=== PATIENT | male | born 1970 | race Caucasian/White ===

== ENCOUNTER 2018-02-11 04:46 | Emergency (ER) | payer OTHER ==
[~2018-02-11] VITALS: Ht 175.3 cm; Wt 135.0 kg
[2018-02-11 04:53] VITALS: BP 155/83; PULSE 74; RESP 18; O2SAT 98
[2018-02-11] MEDS ORDERED: ATOR40TA16 PO (05:14)
[2018-02-11] MEDS ORDERED: VITATAB25 PO (05:14)
[2018-02-11] MEDS ORDERED: MOME17I EACH NARE (05:17)
--- NOTE | 2018-02-11 05:17 | PD ---
HPI Chief Complaint: Nosebleed Time Seen by Provider: 05:07 Travel History International Travel<30 days: Yes ([place] and [place]) Contact w/Intl Traveler<30days: Yes Name of Country Traveled to: [place] and [place] Traveled to known affect area: No History of Present Illness HPI 47-year-old male with history of hypercholesterolemia, presents emergency department for evaluation of epistaxis. He has had 2 episodes of this since yesterday. He states that he woke up yesterday with blood on his pillow. This happened again today. Denies any trauma. No recent illnesses, fever, chills. Patient was treated for sinusitis 3 weeks ago by his primary care provider. Denies any significant pain. He does have a mild frontal headache. No other symptoms to report. PFSH Past Medical History High Cholesterol: Yes Diminished Hearing: No Tetanus Vaccination: < 5 Years Influenza Vaccination: No Past Surgical History Surgical History: No Previous Surgery Social History Alcohol Use: Yes (occionally) Tobacco Use: No Substance Use: No Allergies-Medications (Allergen,Severity, Reaction): Coded Allergies: Penicillins (Verified Allergy, Severe, Anaphylaxis, 02/11/18) Reported Meds & Prescriptions Reported Meds & Active Scripts Active Nasonex Nasal [place] (Mometasone Furoate) 50 Mcg/Act Naspr 2 [place] EACH NARE DAILY Reported Vitamin D-[address] (Cholecalciferol) 1,000 Unit Tab 1,000 Units PO DAILY Atorvastatin (Atorvastatin Calcium) 40 Mg Tab 40 Mg PO HS Review of Systems Except as stated in HPI: all other systems reviewed are Neg Physical Exam Narrative GENERAL: Well-nourished, well-developed male patient in no acute distress SKIN: Focused skin assessment warm/dry. HEAD: Normocephalic. No sinus tenderness to palpation. EYES: No scleral icterus. No injection or drainage. ENT: Mucosa pink and moist. No erythema or exudates. No uvular edema. No uvular , palatal, or tonsillar deviation. Airway patent. Nasal turbinates appear significantly inflamed without any nasal blood, purulent drainage, or hematoma. NECK: Supple, trachea midline. No JVD or lymphadenopathy. CARDIOVASCULAR: Regular rate and rhythm without murmurs, gallops, or rubs. RESPIRATORY: Breath sounds equal bilaterally. No accessory muscle use. GASTROINTESTINAL: Abdomen soft, non-tender, nondistended. MUSCULOSKELETAL: No cyanosis, or edema. BACK: Nontender without obvious deformity. No CVA tenderness. Data Data Last Documented VS Vital Signs Date Time Temp Pulse Resp B/P (MAP) Pulse Ox O2 Delivery O2 Flow Rate FiO2 02/11/18 04:53 74 18 155/83 (107) 98 Orders Orders Ed Discharge Order (02/11/18 05:12) MDM Medical Decision Making Medical Screen Exam Complete: Yes Emergency Medical Condition: Yes Medical Record Reviewed: Yes Differential Diagnosis Epistaxis versus rhinitis versus sinusitis versus allergies versus hypo- coagulopathy Narrative Course 47-year-old male presents emergency department for evaluation of epistaxis. Patient is not currently bleeding. He states he has had 2 episodes in the last 24 hours. No trauma. Patient does have significantly inflamed turbinates. His epistaxis is likely secondary to allergic rhinitis. Patient will be started on Nasonex, he is encouraged to use [id number] normal saline spray. 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 He agrees to return immediately with any acute worsening symptoms. Diagnosis Primary Impression: Epistaxis Additional Impression: Rhinitis Qualified Codes: J31.0 - Chronic rhinitis Referrals: Ear / Nose / Throat Specialist Primary Care Physician Patient Instructions: Epistaxis (DC), General Instructions Additional Instructions: Humidified air [id number] nasal saline spray morning and night Follow-up with a primary care provider [id number] antihistamine such as Zyrtec as directed on the package may help alleviate symptoms Seek ear nose and throat evaluation if symptoms persist Return immediately with acute worsening symptoms Med/Other Pt SpecificInfo: Prescription(s) given Scripts Mometasone Nasal [place] (Nasonex Nasal [place]) 50 Mcg/Act Naspr 2 SPRAY EACH NARE DAILY for Allergy Management, #1 BOTTLE 0 Refills Prov: Jewels Noe 02/11/18 Disposition: 01 DISCHARGE HOME Condition: Stable Jewels Noe Feb 11, 2018 05:17
== END 2018-02-11 05:34 | disposition home or self-care (01) ==
LOC: NEPD 04:46
DX: R04.0 Epistaxis (principal); J31.0 Chronic rhinitis; E78.00 Pure hypercholesterolemia, unspecified; Z88.0 Allergy status to penicillin; Z79.899 Other long term (current) drug therapy
CPT/HCPCS: 99283

== ENCOUNTER 2018-04-16 07:03 | Observation (INO) | payer OTHER ==
[~2018-04-16] VITALS: Ht 175.3 cm; Wt 137.7 kg
[~2018-04-16 07:03] MED LIST: ATOR40TA16 PO; FLUT50SP EACH NARE; MOME17I EACH NARE; VITATAB25 PO; fentaNYL CITRATE 250 MCG/5 ML AMP ONE
[2018-04-16] MEDS ORDERED: LIDOCAINE 1%/EPINEPHrine 1:100,000 SOLN 20 ML VIAL ONE (07:04)
[2018-04-16] MEDS ORDERED: OXYMETAZOLINE HCL 0.05% 15 ML NASAL SPRAY ONE (07:05)
[2018-04-16] MEDS ORDERED: BACITRACIN TOP OINT 15 GM TUBE ONE (07:06)
[2018-04-16] MEDS ORDERED: LIDOCAINE 1%/EPINEPHrine 1:100,000 SOLN 30 ML VIAL ONE (07:06)
[2018-04-16] MEDS ORDERED: CHLORHEXIDINE GLUCONATE 2 % 1 PACK (2 CLOTHS) TOPICAL PRN (07:45)
[2018-04-16] MEDS ORDERED: LACTATED RINGER'S 1000 ML IV PRN (07:45)
[2018-04-16] MEDS ORDERED: POVIDONE IODINE 5% (ANTISEPSIS KIT) 4 APPLICATIONS EACH NARE PRN (07:45)
[2018-04-16] MEDS ORDERED: METOPROLOL TARTRATE 25 MG TAB PO PRN (07:45)
[2018-04-16] MEDS ORDERED: SODIUM CHLORID 0.9% 500 ML IV PRN (07:45)
[2018-04-16] MEDS ORDERED: CLINDAMYCIN 600 MG/NS PREMIX 50 ML IV ONE ×2 (07:57→08:15)
[2018-04-16] MEDS ORDERED: MICROFIBRILLAR COLLAGEN HEMOSTAT 1 GM PKT TOPICAL ONE (11:30)
[2018-04-16] MEDS ORDERED: OXYMETAZOLINE HCL 0.05% 15 ML NASAL SPRAY NASAL ONE (11:31)
[2018-04-16 12:01] VITALS: PULSE 90
[2018-04-16] MEDS ORDERED: *Lactated Ringer's INJ 1,000 ML ONE (12:08)
[2018-04-16] MEDS ORDERED: *MEPERIDINE 25 MG INJ VIAL PERIprocedural Use ONLY ONE (12:23)
[2018-04-16] MEDS ORDERED: ONDANSETRON HCL 4 MG/2 ML VIAL IV PRN (13:15)
[2018-04-16] MEDS ORDERED: ACETAMINOPHEN/HYDROcodone 325 MG/7.5 MG TAB PO PRN (13:15)
[2018-04-16 13:35] VITALS: PULSE 81
[2018-04-16 15:20] VITALS: O2SAT 99
[2018-04-16] MEDS: ACETAMINOPHEN 325MG/HYDROcodone 7.5MG/15ML UDC PO SCH ×3 (15:44→23:03)
[2018-04-16] MEDS: LACTATED RINGER'S 1000 ML INJ 1,000 ML IV SCH ×2 (15:45→23:15)
[2018-04-16] MEDS: CLINDAMYCIN 900 MG/NS PREMIX 50 ML IV SCH (17:05)
[2018-04-16 17:17] VITALS: BP 132/74; PULSE 104; RESP 18; TEMP 97; O2SAT 95
[2018-04-16 20:00] VITALS: BP 151/84; PULSE 106; RESP 20; TEMP 97.1; O2SAT 99
[2018-04-16 20:50] VITALS: O2SAT 97
[2018-04-16] MEDS ORDERED: ATORVASTATIN 40 MG TAB PO SCH (21:00)
[2018-04-17] VITALS: BP 134/88; PULSE 94; RESP 20; TEMP 96.4; O2SAT 99
[2018-04-17] MEDS: CLINDAMYCIN 900 MG/NS PREMIX 50 ML IV SCH (01:25)
[2018-04-17] MEDS: ACETAMINOPHEN 325MG/HYDROcodone 7.5MG/15ML UDC PO SCH ×2 (03:10→06:40)
[2018-04-17] MEDS: LACTATED RINGER'S 1000 ML INJ 1,000 ML IV SCH (04:19)
[2018-04-17 07:50] VITALS: BP 130/70; PULSE 77; RESP 20; TEMP 96.3; O2SAT 95
[2018-04-17 08:34] VITALS: O2SAT 92
--- NOTE | 2018-04-21 12:42 | MP ---
cc: José Luis Bob MD DATE OF OPERATION: DATE OF PROCEDURE: 04/16/2018. SURGEON: José Luis Bob MD PREOPERATIVE DIAGNOSES: 1. Adenotonsillar hypertrophy. 2. Chronic tonsillitis. 3. Obstructive sleep apnea. 4. Nasal airway obstruction. 5. Chronic pansinusitis. POSTOPERATIVE DIAGNOSES: 1. Adenotonsillar hypertrophy. 2. Chronic tonsillitis. 3. Obstructive sleep apnea. 4. Nasal airway obstruction. 5. Chronic pansinusitis. OPERATION PERFORMED: 1. Open repair, nasal septal fracture. 2. Bilateral submucosal resection of inferior turbinates. 3. Bilateral endoscopic maxillary antrostomies with removal of maxillary sinus tissue. 4. Bilateral endoscopic exploration of frontal sinus ducts with balloon dilation. 5. Bilateral endoscopic sphenoid ostium antrostomy. 6. Adenotonsillectomy. INDICATIONS: Documented in the history and physical. DETAILS OF PROCEDURE: The patient was taken to OR #2 and placed in the supine position. Following induction of general anesthesia and intubation, the nose is packed bilaterally with cotton pledgets saturated in 0.05% oxymetazoline. Septal mucosa and inferior turbinates were injected with a total of 10 mL of 1% Xylocaine with epinephrine 1:100,000. He was then prepped and draped for surgery. Nasal packing was removed and a hemitransfixion incision was made in the left nasal vestibule. Through this incision, the septal mucosa was elevated from the underlying quadrangular cartilage as far as the junction of the bony and cartilaginous septum. This exposed the quadrangular cartilage and on it showed evidence of old fracture with numerous comminuted fragments extending into the airways bilaterally. A cumulative area of 2 x 3 cm was removed, preserving 1.5 cm dorsal and caudal cartilaginous struts. This was done with a [place] elevator and Enrique-Peña forceps. When this was completed, the mucosa was elevated from the bony septum and the maxillary crest and these were removed using the [place]-Peña forceps. Incision was then closed with a running suture of 4-0 chromic and the mucosal layers of septum were approximated to each other with a quilting stitch of 4-0 plain gut. The inferior turbinates were addressed next. They were fractured out medially and stab incisions made along their inferior surfaces. Through these incisions, the submucosal soft tissue was reduced using a curette and preserving the conchal bone. The incisions were then cauterized using a suction Bovie at 35 grossman and the remnants of the inferior turbinates were then relateralized to the lateral nasal wall. From this point forward, the remainder of the endonasal operation was completed using endoscopic visualization. Additional injections of lidocaine and epinephrine were made into the attachment to the middle turbinates and the uncinate processes, as well as into the ethmoid cells. Left side was addressed first beginning with balloon dilation of the left frontal duct. The guidewire was advanced into the frontal sinus and the balloon was advanced over the guidewire. The balloon was inflated to a pressure of 12 atmospheres at the superior midpoint and the inferior limit of the frontal duct. Left frontal duct was then operated in the same fashion. When this was completed, the maxillary ostium was probed using a 3 mm olive tip suction and was enlarged using Stammberger forceps and the power microdebrider. Inflamed tissue and purulent mucoid material was then removed from the maxillary sinus. The right side was then operated in the same fashion. Lastly, in the nose the sphenoid sinus was addressed. The ostium was probed using a #10 suction and then enlarged using a sphenoid rongeur. The cavity was irrigated. There was no gross infection present in the sphenoid. When this was completed, the table was turned 90 degrees and a shoulder roll, Adam head drape and a McIvor mouth gag were put in place. There was very extreme hypertrophy of tonsils, which were chronically inflamed bilaterally. These were removed, beginning with the ArthroCare Coblator technique on the right side. This proved inadequate to provide the coagulation power needed to remove the tonsils with minimal bleeding and the Bovie cautery technique was then used on the left side. The tonsils were passed off the field for histological examination. Both tonsil fossa were packed with cotton tonsil sponges saturated in oxymetazoline. These remained in place while the adenoids were removed using the suction Bovie at 45 grossman. When this completed the packing was removed from the tonsillar fossa. Both sides were then cauterized using the suction Bovie. Hemostasis was complete. Both tonsil fossae were then packed with Avitene microfibril, which was held in place for 10 minutes using a dry tonsil sponge compressing the tonsil fossa. When this was completed, the stomach was aspirated of several mL of bilious gastric contents using a #18 [place] sump NG tube. At this point, the operation was terminated. The mouth gag was removed. The patient was reversed from anesthesia and taken to recovery in good condition. There were no complications. Blood loss was 200 mL. MD GARY Salas/TL , 11:18 AM , 12:40 PM
== END 2018-04-17 09:30 | disposition home or self-care (01) ==
LOC: PHSDC 07:03 → PHEDA 08:12 → HSDI 08:12 → UNDOADMOB 08:12 → PH3A 14:33
PROVIDERS: ADMIT Otolaryngology; ATTEND Otolaryngology
DX: J35.3 Hypertrophy of tonsils with hypertrophy of adenoids (principal); J35.01 Chronic tonsillitis; G47.33 Obstructive sleep apnea (adult) (pediatric); J32.4 Chronic pansinusitis; J34.89 Other specified disorders of nose and nasal sinuses
CPT/HCPCS: 00160; 21336; 30140; 31267; 31276; 31297; 42821; 88304; 94762; 96361; 96365; G0378; J2175; J2405; J3010; J7120